=== PATIENT | male | born 1975 | race Caucasian/White ===

== ENCOUNTER 2016-12-07 20:05 | Inpatient (IN) | payer MEDICAID, OTHER ==
[~2016-12-07] VITALS: Ht 175.3 cm; Wt 65.4 kg
[2016-12-07] MEDS ORDERED: NALOXONE PREFILLED SYRINGE 2 MG/2 ML SYRINGE ONE (20:12)
[2016-12-07] MEDS ORDERED: IV SET PRIMARY 1 EA INFUS.SET MC ONE ×2 (20:15→20:23)
[2016-12-07] MEDS ORDERED: IV NS 0.9% 1,000 ML ONE (20:15)
[2016-12-07] MEDS ORDERED: PROPOFOL 100 ML IV ONE (20:24)
[2016-12-07] MEDS ORDERED: IV SET PRIMARY PUMP SET 1 EA INFUS.SET MC ONE ×2 (20:24→23:17)
[2016-12-07] MEDS ORDERED: IV NS 0.9% 1,000 ML BAG IV ONE (20:30)
[2016-12-07 20:34] LABS: BASOPHILS % (AUTO) 0.3 % (0.0-2.0); DIFF TOTAL % 100 %; EOSINOPHILS # (AUTO) 0.3 /CMM (0.0-0.7); EOSINOPHILS % (AUTO) 5.2 % (0.0-6.0); HEMATOCRIT 38 % (39-51); HEMOGLOBIN 12.9 g/dL (13.5-17.5); LYMPHOCYTES # (AUTO) 2.2 /CMM (0.8-4.8); LYMPHOCYTES % (AUTO) 35.5 % (20.0-44.0); MEAN CORPUSCULAR HEMOGLOBIN 30 PG (26.0-33.0); MEAN CORPUSCULAR HGB CONC 34 g/dl (31.0-36.0); MEAN CORPUSCULAR VOLUME 88 fL (80-96); MONOCYTES # (AUTO) 0.5 /CMM (0.1-1.30); MONOCYTES % (AUTO) 7.7 % (2.0-12.0); NEUTROPHILS # (AUTO) 3.2 /CMM (1.8-8.9); NEUTROPHILS % (AUTO) 51.3 % (43.0-81.0); PLATELET COUNT (AUTO) 253 /CMM (150-450); RED BLOOD CELL COUNT(AUTO) 4.35 MIL/uL (4.5-6.0); WHITE BLOOD COUNT (AUTO) 6.2 K/uL (4.3-11.0)
[2016-12-07] MEDS: PROPOFOL 100 ML IV PRN ×2 (20:45→23:58)
[2016-12-07 20:47] LABS: INR 1.15 (0.87-1.13); PROTHROMBIN TIME 12.1 SECS (9.5-12.7)
[2016-12-07 20:51] LABS: KETONES,URINE 15 (NEGATIVE); LEUKOCYTE ESTERASE ,URINE Negative (NEGATIVE); PH,URINE 5.5 (5.0-8.0)
[2016-12-07 20:57] LABS: ACETAMINOPHEN < 2 ug/ml (10-30); ALANINE AMINOTRANSFERASE 37 U/L (12-78); ALBUMIN 3.5 g/dL (3.4-5.0); ANION GAP 18 (5-14); ASPARTATE AMINOTRANSFERASE 28 U/L (15-37); BILIRUBIN,TOTAL 0.2 mg/dL (0.2-1.0); CALCIUM, SERUM 8.6 mg/dL (8.5-10.1); CARBON DIOXIDE 24 mmol/L (21-32); CHLORIDE 106 mmol/L (98-107); CREATININE 1.1 mg/dL (0.6-1.3); GFR 73 mL/min (>60); GLUCOSE 106 mg/dL (74-106); INDIRECT BILIRUBIN 0.2 mg/dL (0.0-1.1); SALICYLATE < 2.8 mg/dL (2.8-20.0); SODIUM SERUM 144 mmol/L (136-145); TOTAL PROTEIN, SERUM 7.1 g/dL (6.4-8.2); UREA NITROGEN, BLOOD 19 mg/dL (7-18)
[2016-12-07 20:58] LABS: ADD UA MICROSCOPIC YES
[2016-12-07 20:59] LABS: TROPONIN I 0.026 ng/mL (0.00-0.056)
[2016-12-07] MEDS ORDERED: ETOMIDATE 2 MG/ML VIAL IV ONE (20:59)
[2016-12-07] MEDS ORDERED: ROCURONIUM BROMIDE 50 MG/5 ML IV ONE (20:59)
[2016-12-07] MEDS ORDERED: FEE EMEERGENCY 1 MIN EA MC ONE (20:59)
[2016-12-07 21:01] LABS: ADD URINE CULTURE NO; WBC,URINE 0-2 /HPF (0-3)
[2016-12-07 21:05] VITALS: BP 118/83
[2016-12-07 21:08] LABS: CANNABINOID, URINE POSITIVE (NEGATIVE); PHENCYCLIDINE SCREEN,URINE NEGATIVE (NEGATIVE)
[2016-12-07] MEDS ORDERED: IV NS 0.9% 1,000 ML IV PRN (22:39)
[2016-12-07 22:53] VITALS: BP 122/62
[2016-12-07 23:00] VITALS: BP 120/102
[2016-12-07] MEDS ORDERED: MAGNESIUM HYDROXIDE 30 ML UDC PO PRN (23:00)
[2016-12-07] MEDS ORDERED: ONDANSETRON HCL/PF 4 MG/2 ML VIAL IVP PRN (23:00)
[2016-12-07] MEDS ORDERED: ZOLPIDEM TARTRATE 5 MG TABLET PO PRN (23:00)
[2016-12-07] MEDS ORDERED: HYDROCODONE/APAP 5/325MG 1 EACH TABLET PO PRN (23:00)
[2016-12-07] MEDS ORDERED: ACETAMINOPHEN 325 MG TABLET PO PRN (23:00)
[2016-12-07] MEDS ORDERED: MAG HYDROX/AL HYDROX/SIMETH 30 ML UDC PO PRN (23:00)
[2016-12-07] MEDS ORDERED: Z GUARD REMEDY 2 OZ OINT TP PRN (23:00)
[2016-12-07 23:24] LABS: ABG BASE EXCESS -4.8 mmol/L; ABG HCO3 23.1 mmol/L; ABG PCO2 53.7 mmHg (35.0-45.0); ABG PH 7.251 (7.350-7.450); ABG PO2 52.5 mmHg (75.0-100.0); ABG TOTAL HEMOGLOBIN 14.9 G/dL (13.5-18.0); AaDO2 606.8 mmHg; O2Hb 80.3 % (94.0-97.0)
[2016-12-07] MEDS ORDERED: PROPOFOL 200 ML IV ONE (23:53)
[2016-12-08] VITALS (55 sets, daily range): BP systolic 74–117; BP diastolic 42–79
[2016-12-08] MEDS ORDERED: BUMETANIDE INJ 4 MG in IV NS 0.9% 24 ML IV ONE (00:30)
[2016-12-08] MEDS ORDERED: FUROSEMIDE 100 MG/10 ML VIAL IV ONE (00:30)
[2016-12-08] MEDS ORDERED: LEVALBUTEROL HCL NEB 1.25 MG/0.5 ML VIAL.NEB NEB PRN (00:30)
[2016-12-08] MEDS ORDERED: LORAZEPAM INJ 2 MG/ML VIAL ONE (00:46)
[2016-12-08] MEDS ORDERED: FUROSEMIDE 100 MG/10 ML VIAL ONE (01:00)
[2016-12-08] MEDS ORDERED: BUMETANIDE INJ 0.25 MG/ML VIAL ONE (01:08)
[2016-12-08] MEDS: LORAZEPAM INJ 2 MG/ML VIAL IV PRN ×4 (01:09→23:22)
[2016-12-08] MEDS ORDERED: IV NS 0.9% 100 ML IV ONE (01:09)
[2016-12-08] MEDS: PROPOFOL 100 ML IV PRN ×9 (02:32→23:33)
[2016-12-08] MEDS ORDERED: PROPOFOL 100 ML IV ONE (04:44)
[2016-12-08 05:13] LABS: BASOPHILS % (AUTO) 0.2 % (0.0-2.0); DIFF TOTAL % 100 %; EOSINOPHILS # (AUTO) 0.1 /CMM (0.0-0.7); EOSINOPHILS % (AUTO) 0.8 % (0.0-6.0); HEMATOCRIT 50 % (39-51); HEMOGLOBIN 16.2 g/dL (13.5-17.5); LYMPHOCYTES # (AUTO) 2.5 /CMM (0.8-4.8); LYMPHOCYTES % (AUTO) 19.7 % (20.0-44.0); MEAN CORPUSCULAR HEMOGLOBIN 29 PG (26.0-33.0); MEAN CORPUSCULAR HGB CONC 32 g/dl (31.0-36.0); MEAN CORPUSCULAR VOLUME 90 fL (80-96); MONOCYTES # (AUTO) 0.5 /CMM (0.1-1.30); MONOCYTES % (AUTO) 3.8 % (2.0-12.0); NEUTROPHILS # (AUTO) 9.7 /CMM (1.8-8.9); NEUTROPHILS % (AUTO) 75.5 % (43.0-81.0); PLATELET COUNT (AUTO) 302 /CMM (150-450); RED BLOOD CELL COUNT(AUTO) 5.56 MIL/uL (4.5-6.0); WHITE BLOOD COUNT (AUTO) 12.8 K/uL (4.3-11.0)
[2016-12-08 05:29] LABS: CREATININE 1.1 mg/dL (0.6-1.3); PHOSPHORUS 3.2 mg/dL (2.5-4.9); POTASSIUM 4.1 mmol/L (3.5-5.1)
[2016-12-08 05:40] LABS: THYROID STIMULATING HORMONE 1.063 uIU/mL (0.358-3.74)
[2016-12-08 07:37] LABS: ABG BASE EXCESS 1.9 mmol/L; ABG HCO3 26.8 mmol/L; ABG PCO2 42.6 mmHg (35.0-45.0); ABG PH 7.416 (7.350-7.450); ABG PO2 447.3 mmHg (75.0-100.0); ABG TOTAL HEMOGLOBIN 14.8 G/dL (13.5-18.0); ALLEN TEST Pass; AaDO2 223.1 mmHg; O2Hb 97.8 % (94.0-97.0)
[2016-12-08] MEDS ORDERED: IV SET PRIMARY PUMP SET 1 EA INFUS.SET MC ONE ×3 (07:54→19:55)
[2016-12-08] MEDS ORDERED: IV NS 0.9% 250 ML IV ONE ×2 (08:32→09:00)
[2016-12-08] MEDS: PANTOPRAZOLE 40 MG TABLET.DR PO SCH (08:59)
[2016-12-08] MEDS ORDERED: ALBUTEROL FS 2.5 MG/3 ML VIAL.NEB NEB PRN (09:00)
[2016-12-08] MEDS ORDERED: IV NS 0.9% 1,000 ML ONE (11:16)
[2016-12-08] MEDS ORDERED: SECONDARY IV SET 1 EA INFUS.SET MC ONE (11:16)
[2016-12-08] MEDS: ENOXAPARIN SODIUM 40 MG/0.4 ML DISP.SYRIN SQ SCH (11:20)
[2016-12-08] MEDS ORDERED: FEE PK DOSING 1 MIN EA MC ONE (11:50)
[2016-12-08] MEDS: IV NS 0.9% 1,000 ML IV PRN ×2 (11:50→23:48)
[2016-12-08] MEDS ORDERED: VANCOMYCIN 1 GM in IV D5W 250 ML IV SCH (12:00)
[2016-12-08] MEDS: PIPERACILLIN /TAZOBACTAM 4.5 G in IV D5W 50 ML IV SCH ×3 (12:25→23:23)
[2016-12-08] MEDS ORDERED: VANCOMYCIN 1.25 GM in IV D5W 500 ML IV SCH (13:00)
[2016-12-08] MEDS: VANCOMYCIN 1 GM in IV D5W 250 ML IV SCH ×2 (13:18→20:02)
[2016-12-09] VITALS (49 sets, daily range): BP systolic 98–116; BP diastolic 58–75
[2016-12-09] MEDS: PROPOFOL 100 ML IV PRN ×6 (03:11→22:18)
[2016-12-09] MEDS ORDERED: ACETAMINOPHEN 650 MG/20.3 ML UDC ONE (04:53)
[2016-12-09 04:55] LABS: BASOPHILS % (AUTO) 0.3 % (0.0-2.0); DIFF TOTAL % 100 %; EOSINOPHILS # (AUTO) 0.1 /CMM (0.0-0.7); EOSINOPHILS % (AUTO) 0.7 % (0.0-6.0); HEMATOCRIT 37 % (39-51); HEMOGLOBIN 12.3 g/dL (13.5-17.5); LYMPHOCYTES # (AUTO) 1.9 /CMM (0.8-4.8); MEAN CORPUSCULAR HEMOGLOBIN 29 PG (26.0-33.0); MEAN CORPUSCULAR HGB CONC 33 g/dl (31.0-36.0); MEAN CORPUSCULAR VOLUME 88 fL (80-96); MONOCYTES # (AUTO) 0.6 /CMM (0.1-1.30); MONOCYTES % (AUTO) 6.1 % (2.0-12.0); NEUTROPHILS % (AUTO) 72.9 % (43.0-81.0); PLATELET COUNT (AUTO) 235 /CMM (150-450); WHITE BLOOD COUNT (AUTO) 9.6 K/uL (4.3-11.0)
[2016-12-09] MEDS: VANCOMYCIN 1 GM in IV D5W 250 ML IV SCH ×3 (05:03→20:33)
[2016-12-09 05:08] LABS: CALCIUM, SERUM 7.9 mg/dL (8.5-10.1); CREATININE 1.3 mg/dL (0.6-1.3); PHOSPHORUS 3.2 mg/dL (2.5-4.9); POTASSIUM 3.9 mmol/L (3.5-5.1)
[2016-12-09] MEDS: PIPERACILLIN /TAZOBACTAM 4.5 G in IV D5W 50 ML IV SCH ×4 (05:27→23:44)
[2016-12-09] MEDS ORDERED: IV SET PRIMARY PUMP SET 1 EA INFUS.SET MC ONE (08:35)
[2016-12-09] MEDS: PANTOPRAZOLE 40 MG TABLET.DR PO SCH (08:40)
[2016-12-09] MEDS: ENOXAPARIN SODIUM 40 MG/0.4 ML DISP.SYRIN SQ SCH (08:41)
[2016-12-09] MEDS: IV NS 0.9% 1,000 ML IV PRN ×2 (08:54→22:45)
[2016-12-09] MEDS ORDERED: SECONDARY IV SET 1 EA INFUS.SET MC ONE ×2 (10:08→10:09)
[2016-12-09] MEDS: Magnesium 1GM/D5W 100ML PREMIX 100 ML IV SCH ×2 (10:22→11:11)
[2016-12-09] MEDS: ACETAMINOPHEN 650 MG/20.3 ML UDC PO PRN (15:37)
[2016-12-10] VITALS (53 sets, daily range): BP systolic 84–121; BP diastolic 47–83
[2016-12-10] MEDS: PROPOFOL 100 ML IV PRN ×7 (01:14→21:34)
[2016-12-10] MEDS ORDERED: IV SET PRIMARY PUMP SET 1 EA INFUS.SET MC ONE ×3 (01:36→18:48)
[2016-12-10] MEDS: VANCOMYCIN 1 GM in IV D5W 250 ML IV SCH ×3 (04:25→21:34)
[2016-12-10 05:06] LABS: POTASSIUM 4.3 mmol/L (3.5-5.1)
[2016-12-10] MEDS: PIPERACILLIN /TAZOBACTAM 4.5 G in IV D5W 50 ML IV SCH ×3 (06:17→17:04)
[2016-12-10] MEDS: PANTOPRAZOLE 40 MG TABLET.DR PO SCH (07:15)
[2016-12-10] MEDS: IV NS 0.9% 1,000 ML IV PRN ×2 (07:20→17:49)
[2016-12-10 07:28] LABS: BASOPHILS % (AUTO) 0.1 % (0.0-2.0); DIFF TOTAL % 100 %; EOSINOPHILS # (AUTO) 0.4 /CMM (0.0-0.7); EOSINOPHILS % (AUTO) 3.5 % (0.0-6.0); HEMATOCRIT 35 % (39-51); HEMOGLOBIN 11.4 g/dL (13.5-17.5); LYMPHOCYTES % (AUTO) 17.1 % (20.0-44.0); MEAN CORPUSCULAR HEMOGLOBIN 29 PG (26.0-33.0); MEAN CORPUSCULAR HGB CONC 33 g/dl (31.0-36.0); MEAN CORPUSCULAR VOLUME 90 fL (80-96); MONOCYTES # (AUTO) 0.6 /CMM (0.1-1.30); MONOCYTES % (AUTO) 5.4 % (2.0-12.0); NEUTROPHILS # (AUTO) 8.5 /CMM (1.8-8.9); NEUTROPHILS % (AUTO) 73.9 % (43.0-81.0); PLATELET COUNT (AUTO) 199 /CMM (150-450); WHITE BLOOD COUNT (AUTO) 11.6 K/uL (4.3-11.0)
[2016-12-10] MEDS: LORAZEPAM INJ 2 MG/ML VIAL IV PRN ×3 (07:52→18:58)
[2016-12-10] MEDS: ENOXAPARIN SODIUM 40 MG/0.4 ML DISP.SYRIN SQ SCH (08:01)
[2016-12-10] MEDS: ACETAMINOPHEN 650 MG/20.3 ML UDC PO PRN (21:20)
[2016-12-11] VITALS (30 sets, daily range): BP systolic 93–143; BP diastolic 45–89
[2016-12-11] MEDS: PROPOFOL 100 ML IV PRN ×4 (02:45→05:32)
[2016-12-11] MEDS: IV NS 0.9% 1,000 ML IV PRN ×2 (04:31→18:00)
[2016-12-11] MEDS: VANCOMYCIN 1 GM in IV D5W 250 ML IV SCH ×3 (04:32→20:03)
[2016-12-11 04:52] LABS: CREATININE 0.9 mg/dL (0.6-1.3); POTASSIUM 3.9 mmol/L (3.5-5.1)
[2016-12-11] MEDS: PIPERACILLIN /TAZOBACTAM 4.5 G in IV D5W 50 ML IV SCH ×6 (05:30→23:03)
[2016-12-11] MEDS: PANTOPRAZOLE 40 MG/PACK PACK GT SCH (09:02)
[2016-12-11 09:04] LABS: ABG BASE EXCESS 1.8 mmol/L; ABG HCO3 25.7 mmol/L; ABG PCO2 37.7 mmHg (35.0-45.0); ABG PH 7.451 (7.350-7.450); ABG PO2 111.5 mmHg (75.0-100.0); ALLEN TEST Pass; AaDO2 130.3 mmHg; O2Hb 96.2 % (94.0-97.0)
[2016-12-11] MEDS: ENOXAPARIN SODIUM 40 MG/0.4 ML DISP.SYRIN SQ SCH (09:05)
[2016-12-11] MEDS ORDERED: LORAZEPAM INJ 2 MG/ML VIAL IV PRN (10:00)
[2016-12-11] MEDS: LORAZEPAM INJ 2 MG/ML VIAL IV PRN ×3 (12:21→21:48)
[2016-12-11] MEDS: MUPIROCIN OINT 2% 22 GM TUBE SCH (20:40)
[2016-12-12] VITALS (26 sets, daily range): BP systolic 105–130; BP diastolic 58–84
[2016-12-12] MEDS: LORAZEPAM INJ 2 MG/ML VIAL IV PRN ×2 (01:46→20:55)
[2016-12-12] MEDS: IV NS 0.9% 1,000 ML IV PRN (03:12)
[2016-12-12] MEDS: VANCOMYCIN 1 GM in IV D5W 250 ML IV SCH ×3 (04:35→20:54)
[2016-12-12] MEDS ORDERED: SECONDARY IV SET 1 EA INFUS.SET MC ONE ×2 (04:36→11:28)
[2016-12-12] MEDS: PIPERACILLIN /TAZOBACTAM 4.5 G in IV D5W 50 ML IV SCH ×3 (05:00→18:15)
[2016-12-12 05:20] LABS: CALCIUM, SERUM 8.1 mg/dL (8.5-10.1); CREATININE 0.8 mg/dL (0.6-1.3); POTASSIUM 3.4 mmol/L (3.5-5.1)
[2016-12-12] MEDS: PANTOPRAZOLE 40 MG/PACK PACK GT SCH (09:40)
[2016-12-12] MEDS: ENOXAPARIN SODIUM 40 MG/0.4 ML DISP.SYRIN SQ SCH (09:43)
[2016-12-12] MEDS: MUPIROCIN OINT 2% 22 GM TUBE SCH ×2 (09:44→21:01)
[2016-12-12] MEDS: METHYLPHENIDATE HCL (10MG) 10 MG TABLET PO SCH ×3 (11:34→16:43)
[2016-12-12] MEDS: POTASSIUM CL. PREMIX PERIPHER. 50 ML IV SCH ×2 (11:35→16:38)
[2016-12-12] MEDS: IV NS 0.9% 1,000 ML BAG IV PRN (11:35)
[2016-12-12] MEDS ORDERED: HALOPERIDOL 5 MG TABLET PO ONE (17:30)
[2016-12-12] MEDS ORDERED: BENZTROPINE MESYLATE (1 MG) 1 MG TABLET PO ONE (17:30)
[2016-12-13] VITALS (15 sets, daily range): BP systolic 109–128; BP diastolic 62–87
[2016-12-13] MEDS: PIPERACILLIN /TAZOBACTAM 4.5 G in IV D5W 50 ML IV SCH ×3 (00:33→12:13)
[2016-12-13] MEDS: IV NS 0.9% 1,000 ML BAG IV PRN (01:21)
[2016-12-13] MEDS: IV NS 0.9% 1,000 ML IV PRN (03:22)
[2016-12-13 04:51] LABS: BASOPHILS % (AUTO) 0.3 % (0.0-2.0); DIFF TOTAL % 100 %; EOSINOPHILS # (AUTO) 0.3 /CMM (0.0-0.7); EOSINOPHILS % (AUTO) 3.7 % (0.0-6.0); HEMATOCRIT 36 % (39-51); LYMPHOCYTES # (AUTO) 1.5 /CMM (0.8-4.8); LYMPHOCYTES % (AUTO) 20.2 % (20.0-44.0); MEAN CORPUSCULAR HEMOGLOBIN 29 PG (26.0-33.0); MEAN CORPUSCULAR HGB CONC 33 g/dl (31.0-36.0); MEAN CORPUSCULAR VOLUME 87 fL (80-96); MONOCYTES # (AUTO) 0.5 /CMM (0.1-1.30); MONOCYTES % (AUTO) 6.6 % (2.0-12.0); NEUTROPHILS # (AUTO) 5.1 /CMM (1.8-8.9); NEUTROPHILS % (AUTO) 69.2 % (43.0-81.0); PLATELET COUNT (AUTO) 347 /CMM (150-450); RED BLOOD CELL COUNT(AUTO) 4.18 MIL/uL (4.5-6.0); WHITE BLOOD COUNT (AUTO) 7.3 K/uL (4.3-11.0)
[2016-12-13 05:03] LABS: POTASSIUM 3.3 mmol/L (3.5-5.1)
[2016-12-13] MEDS: VANCOMYCIN 1 GM in IV D5W 250 ML IV SCH ×2 (05:14→12:13)
[2016-12-13] MEDS: MUPIROCIN OINT 2% 22 GM TUBE SCH (09:10)
[2016-12-13] MEDS: ENOXAPARIN SODIUM 40 MG/0.4 ML DISP.SYRIN SQ SCH (09:14)
[2016-12-13] MEDS ORDERED: PANTOPRAZOLE 40 MG TABLET.DR PO SCH (09:30)
[2016-12-13] MEDS ORDERED: POTASSIUM CHLORIDE 20 MEQ POWDER PACKET PO ONE (11:30)
[2016-12-13] MEDS: LORAZEPAM INJ 2 MG/ML VIAL IV PRN (13:09)
== END 2016-12-13 14:52 | DRG 917 ==
LOC: EDBD 20:08 → ER 20:08 → ICU 21:49
PROVIDERS: ADMIT Contractor; ATTEND Contractor
PROC: 0BH17EZ Insertion of Endotracheal Airway into Trachea, Via Natural or Artificial Opening (ICD-10-PCS; principal; 2016-12-07)
PROC: 5A1955Z Respiratory Ventilation, Greater than 96 Consecutive Hours (ICD-10-PCS; principal; 2016-12-07)
DX: T41.291A Poisoning by other general anesthetics, accidental (unintentional), initial encounter (principal); G92 Toxic encephalopathy; J69.0 Pneumonitis due to inhalation of food and vomit; J96.01 Acute respiratory failure with hypoxia; J96.02 Acute respiratory failure with hypercapnia; N17.0 Acute kidney failure with tubular necrosis; T43.621A Poisoning by amphetamines, accidental (unintentional), initial encounter; Y92.89 Other specified places as the place of occurrence of the external cause; D63.8 Anemia in other chronic diseases classified elsewhere; I51.7 Cardiomegaly; E87.6 Hypokalemia; J32.2 Chronic ethmoidal sinusitis; S00.03XA Contusion of scalp, initial encounter; E78.5 Hyperlipidemia, unspecified; Z59.0 Homelessness; Y92.9 Unspecified place or not applicable; F12.90 Cannabis use, unspecified, uncomplicated; F29 Unspecified psychosis not due to a substance or known physiological condition; G47.411 Narcolepsy with cataplexy
CPT/HCPCS: 31720; 36415; 36600; 70450-TC; 71010-TC; 80048-TC; 80061-TC; 80076-TC; 80202-TC; 80305; 81000-TC; 82550-TC; 82803-TC; 82962-TC; 83735-TC; 84100-TC; 84443-TC; 84484-TC; 85025-TC; 85730-TC; 87070-TC; 87081-TC; 92611-TC; 94002-TC; 94003-TC; 94799-TC; A4217; A4606; G0480; G6039-TC; J1650; J1940; J2060; J2310; J2543; J3370; J3475; J3480; J3490; J7030; J7050; J7060